=== PATIENT | female | born 1970 | race Caucasian/White ===

== ENCOUNTER 2016-11-25 14:44 | Emergency (ER) | payer OTHER ==
[~2016-11-25] VITALS: Ht 170.2 cm; Wt 70.8 kg
[~2016-11-25 14:44] MED LIST: CYCL10TA7 PO; DICL-201 PO; KFLHP PO; NYSS/ PO; PRLSR20 PO; SALI0.6593 NAE; ULT50 PO; ZFRODT4HP PO
[2016-11-25 15:03] VITALS: TEMP 36.7; Ht 170.2 cm; Wt 70.8 kg
[2016-11-25 16:53] VITALS: O2SAT 100
[2016-11-25] MEDS ORDERED: ALUMINUM/MAGNESIUM SUSP 30 ML UDC PO STA (16:58)
[2016-11-25] MEDS ORDERED: ZNTT/150 PO (17:02)
--- NOTE | 2016-11-25 17:09 | EMERGENCY ROOM VISIT NOTE ---
History Report prepared by Sunitha: Jose Polo Under the Supervision of: Landon EarlO. First contact with patient: 16:45 Chief Complaint: ABNORMAL LABS Stated Complaint: ABNORMAL LAB History of Present Illness The patient is a 46 year old female who presents to the Emergency Room with complaints of intermittent epigastric abdominal pain starting a few months ago. Last year, the patient started having abdominal issues which led to a cholecystectomy. After the gallbladder was removed, her nausea, vomiting, and abdominal pain resolved. A few months ago, she started having diarrhea. She also started having acid reflux and related abdominal pain. She describes the pain to be a burning pain. She has worsening pain with sitting down. She currently denies any pain. She was referred to the Emergency Room after she had an abnormal EKG at [facility]. She currently denies chest pain, shortness of breath, nausea, vomiting, back pain, urinary symptoms, lower extremity swelling/pain, or any other complaints. Besides acid reflux, she does not have any medical problems. She denies any history of cardiac problems. Source of History: patient Onset: a few months ago Position: abdomen (epigastric) Symptom Intensity: No pain currently Quality: burning Timing: intermittent Modifying Factors (Worsening): other (Sitting down) Associated Symptoms: + diarrhea, No SOB, No back pain, No chest pain, No nausea, No urinary symptoms, No vomiting Review of Systems See HPI for pertinent positives & negatives. A total of 10 systems reviewed and were otherwise negative. Past Medical & Surgical Medical Problems: (1) Anxiety (2) Hypertension Family History Cancer Heart disease Social History Smoking Status: Never Smoker Alcohol Use: none Drug Use: none Marital Status: in relationship Housing Status: lives with significant other Occupation Status: unemployed Current/Historical Medications Scheduled Nystatin (Nystatin Suspension), 5 ML PO 5XD Ranitidine (Zantac), 150 MG PO BID Allergies Coded Allergies: Fluticasone (Unverified Adverse Reaction, Severe, BURNING, 08/27/16) Ciprofloxacin (Verified Adverse Reaction, Intermediate, nausea, 10/17/15) Sulfamethoxazole w/Trimethoprim (Verified Adverse Reaction, Intermediate, nausea, 10/17/15) Physical Exam Vital Signs Date Time Temp Pulse Resp B/P Pulse Ox O2 Delivery O2 Flow Rate FiO2 11/25/16 18:28 99 18 157/89 100 11/25/16 16:56 98 3/27/17 16:53 100 Room Air 11/25/16 16:51 100 18 170/100 99 Room Air 11/25/16 15:03 36.7 104 18 173/113 95 Room Air Physical Exam GENERAL: Patient is awake, alert, and in no acute distress. Patient is resting comfortably and showing no signs of anxiety EYES: The conjunctivae are clear. The pupils are round and reactive. EARS, NOSE, MOUTH AND THROAT: The nose is without any evidence of any deformity. Mucous membranes are moist tongue is midline NECK: The neck is nontender and supple. RESPIRATORY: Normal respiratory effort is noted there is no evidence of wheezing rhonchi or rales CARDIOVASCULAR: Regular rate and rhythm noted there no murmurs rubs or gallops normal S1 normal S2 GASTROINTESTINAL: The abdomen is soft. Bowel sounds are present in all quadrants. Abdomen is nontender MUSCULOSKELETAL/EXTREMITIES: There is no evidence of gross deformity full range of motion is noted in the hips and shoulders SKIN: There is no obvious evidence of any rash. There are no petechiae, pallor or cyanosis noted. NEUROLOGIC: Patient is awake alert and oriented x3 strength is symmetric patellar reflexes are 2+ bilaterally Medical Decision & Procedures ER Provider Diagnostic Interpretation: X-ray results as stated below per interpretation by me and the radiologist. CHEST ONE VIEW PORTABLE CLINICAL HISTORY: ABDOMINAL PAIN/GI pain. Nausea. COMPARISON STUDY: No previous studies for comparison. FINDINGS: The bones soft tissues and hemidiaphragms are normal. The cardiomediastinal silhouette is normal. The lungs are clear. The pulmonary vasculature is normal. IMPRESSION: Negative chest. Electronically signed by: Sergio Parker M.D. 11/25/2016 5:20 PM Dictated Date/Time: 11/25/2016 5:20 PM Laboratory Results 11/25/16 16:50 Red Blood Count 4.65, Mean Corpuscular Volume 84.1, Mean Corpuscular Hemoglobin 29.0, Mean Corpuscular Hemoglobin Concent 34.5, Mean Platelet Volume 10.1, Neutrophils (%) (Auto) 65.9, Lymphocytes (%) (Auto) 26.1, Monocytes (%) (Auto) 7.0, Eosinophils (%) (Auto) 0.7, Basophils (%) (Auto) 0.2, Neutrophils # (Auto) 5.42, Lymphocytes # (Auto) 2.15, Monocytes # (Auto) 0.58, Eosinophils # (Auto) 0.06, Basophils # (Auto) 0.02 11/25/16 16:50 Test 11/25/16 16:50 White Blood Count 8.24 K/uL (4.8-10.8) Red Blood Count 4.65 M/uL (4.2-5.4) Hemoglobin 13.5 g/dL (12.0-16.0) Hematocrit 39.1 % (37-47) Mean Corpuscular Volume 84.1 fL (80-100) Mean Corpuscular Hemoglobin 29.0 pg (25-34) Mean Corpuscular Hemoglobin Concent 34.5 g/dl (32-36) Platelet Count 258 K/uL (130-400) Mean Platelet Volume 10.1 fL (7.4-10.4) Neutrophils (%) (Auto) 65.9 % Lymphocytes (%) (Auto) 26.1 % Monocytes (%) (Auto) 7.0 % Eosinophils (%) (Auto) 0.7 % Basophils (%) (Auto) 0.2 % Neutrophils # (Auto) 5.42 K/uL (1.4-6.5) Lymphocytes # (Auto) 2.15 K/uL (1.2-3.4) Monocytes # (Auto) 0.58 K/uL (0.11-0.59) Eosinophils # (Auto) 0.06 K/uL (0-0.5) Basophils # (Auto) 0.02 K/uL (0-0.2) RDW Standard Deviation 42.1 fL (36.4-46.3) RDW Coefficient of Variation 13.7 % (11.5-14.5) Immature Granulocyte % (Auto) 0.1 % Immature Granulocyte # (Auto) 0.01 K/uL (0.00-0.02) Prothrombin Time 11.4 SECONDS (9.0-12.0) Prothromb Time International Ratio 1.1 (0.9-1.1) Activated Partial Thromboplast Time 29.7 SECONDS (21.0-31.0) Partial Thromboplastin Ratio 1.1 Anion Gap 9.0 mmol/L (3-11) Est Creatinine Clear Calc Drug Dose 107.4 ml/min Estimated GFR () 125.1 Estimated GFR (Non- 108.0 BUN/Creatinine Ratio 12.4 (10-20) Calcium Level 8.9 mg/dl (8.5-10.1) Magnesium Level 2.5 mg/dl (1.8-2.4) Total Bilirubin 0.4 mg/dl (0.2-1) Direct Bilirubin < 0.1 mg/dl (0-0.2) Aspartate Amino Transf (AST/SGOT) 8 U/L (15-37) Alanine Aminotransferase (ALT/SGPT) 14 U/L (12-78) Alkaline Phosphatase 81 U/L (45-117) Total Creatine Kinase 69 U/L (26-192) Creatine Kinase MB < 0.5 ng/ml (0.5-3.6) Creatine Kinase MB Ratio (0-3.0) Troponin I < 0.015 ng/ml (0-0.045) Total Protein 7.6 gm/dl (6.4-8.2) Albumin 3.8 gm/dl (3.4-5.0) Lipase 171 U/L (73-393) Laboratory results per my review. Medications Administered Medications (Trade) Dose Ordered Sig/Malia Route Start Time Stop Time Status Last Admin Dose Admin Al Hydroxide/Mg Hydroxide (Maalox Susp) 30 ml NOW STAT PO 11/25/16 16:58 11/25/16 16:59 DC 11/25/16 17:08 30 ML ECG Indication: abdominal pain Rate (beats per minute): 91 Rhythm: normal sinus Findings: LBBB, no ectopy, other (No acute ST segment abnormalities) Comparison ECG Date: October 11, 2015 Change: Changes are new when compared to October 11, 2015. ED Course 1644: The patient was evaluated in room C11B. A complete history and physical examination were performed. 1657: Maalox Susp 30 ml PO 1758: I discussed the patient's case with Dr. Solano, floor person with [facility], who will follow her as an outpatient. 1820: Upon reevaluation, the patient is resting comfortably. I discussed the results and treatment plan with her. She verbalized agreement of the treatment plan. She was discharged home. Medical Decision Prior records/ancillary studies reviewed. Triage Nursing notes reviewed. The patient's history was concerning for abdominal pain. Differential diagnosis: Etiologies such as appendicitis, diverticulitis, PUD, biliary pathology, UTI, pancreatitis, obstruction, mesenteric ischemia, aortic pathology, infections, inflammatory bowel disease, renal colic, as well as others were entertained. The patient is a 46-year-old female who presented to the emergency department for an evaluation of an abnormal EKG. The patient was at the GI lab when she was found have a new left bundle branch block. The patient presented to the emergency department without any symptoms that I thought were consistent with acute coronary syndrome. She is had upper abdominal pain for approximately 1 year. She had her gallbladder out which initially relieved her pain but then started having epigastric discomfort. She was started on H2 blockers. She was sent to see a GI doctor and had an EGD today. The EKG was done and the patient was sent to the emergency department. She did not have any abnormalities in her cardiac biomarkers. I discussed the case with the on-call floor person. At this time he is agreed to see the patient in follow-up for further management including an echocardiogram and possible stress testing if need arises. Consults Time Called: 175 Consulting Physician: Dr. Solano, floor person with [facility] Returned Call: [phone] I discussed the patient's case with Dr. Solano, floor person with [facility], who will follow her as an outpatient. Impression Primary Impression: New onset left bundle branch block (LBBB) Scribe Attestation The scribe's documentation has been prepared under my direction and personally reviewed by me in its entirety. I confirm that the note above accurately reflects all work, treatment, procedures, and medical decision making performed by me. Departure Information Dispostion Home / Self-Care Referrals Efrain Huizar M.D. (PCP) Josef Arias M.D., Thomas O., DO Forms HOME CARE DOCUMENTATION FORM, IMPORTANT VISIT INFORMATION, WORK / SCHOOL INSTRUCTIONS Patient Instructions GERD, My [facility] Additional Instructions Call the floor person to schedule a follow-up appointment. Avoid any strenuous activity. Continue all medications as prescribed. Continue using Maalox or Mylanta as directed for symptomatically relief. Return to the emergency department immediately if symptoms change worsen or the need arises.
[2016-11-25 17:12] LABS: BASO % 0.2 %; BASO ABS # 0.02 K/uL (0-0.2); COMPLETE YES; EOS % 0.7 %; HEMATOCRIT 39.1 % (37-47); IG% 0.1 %; LYMPH % 26.1 %; LYMPH ABS # 2.15 K/uL (1.2-3.4); MEAN CELL VOLUME 84.1 fL (80-100); MEAN CORPUSCULAR HGB CONC 34.5 g/dl (32-36); MEAN PLATELET VOLUME 10.1 fL (7.4-10.4); NEUT % 65.9 %; PLATELET COUNT 258 K/uL (130-400); RED BLOOD COUNT 4.65 M/uL (4.2-5.4); WHITE BLOOD COUNT 8.24 K/uL (4.8-10.8)
[2016-11-25 17:19] LABS: INR 1.1 (0.9-1.1); PARTIAL THROMBOPLASTIN RATIO 1.1; PROTHROMBIN TIME (PATIENT) 11.4 SECONDS (9.0-12.0)
--- NOTE | 2016-11-25 17:21 | DIAGNOSTIC IMAGING REPORT ---
CHEST ONE VIEW PORTABLE CLINICAL HISTORY: ABDOMINAL PAIN/GI pain. Nausea. COMPARISON STUDY: No previous studies for comparison. FINDINGS: The bones soft tissues and hemidiaphragms are normal. The cardiomediastinal silhouette is normal. The lungs are clear. The pulmonary vasculature is normal. IMPRESSION: Negative chest. Electronically signed by: Sergio Parker M.D. 11/25/2016 5:20 PM Dictated Date/Time: 11/25/2016 5:20 PM
[2016-11-25 17:31] LABS: ALT/SGPT 14 U/L (12-78); AST/SGOT 8 U/L (15-37); BLOOD UREA NITROGEN 8 mg/dl (7-18); BUN/CREATININE RATIO 12.4 (10-20); CALCIUM 8.9 mg/dl (8.5-10.1); CARBON DIOXIDE 27 mmol/L (21-32); CHLORIDE 107 mmol/L (98-107); CREATININE 0.65 mg/dl (0.60-1.20); GLUCOSE 77 mg/dl (70-99); MAGNESIUM 2.5 mg/dl (1.8-2.4); POTASSIUM 3.3 mmol/L (3.5-5.1); SODIUM 143 mmol/L (136-145)
[2016-11-25 17:34] LABS: ALKALINE PHOSPHATASE 81 U/L (45-117)
[2016-11-25 18:28] VITALS: BP 157/89; PULSE 99; O2SAT 100
== END 2016-11-25 18:28 | disposition home or self-care (01) ==
LOC: C.EDB 14:45 → C.EDC 18:28
DX: I44.7 Left bundle-branch block, unspecified (principal); F41.9 Anxiety disorder, unspecified; I10 Essential (primary) hypertension; Z79.899 Other long term (current) drug therapy; Z88.2 Allergy status to sulfonamides; Z88.8 Allergy status to other drugs, medicaments and biological substances; Z80.9 Family history of malignant neoplasm, unspecified; Z82.49 Family history of ischemic heart disease and other diseases of the circulatory system

== ENCOUNTER → 2017-02-19 | Outpatient (CLI) | payer OTHER ==
[~2017-02-19] MED LIST changes: -CYCL10TA7 PO; -DICL-201 PO; -KFLHP PO; -PRLSR20 PO; -SALI0.6593 NAE; -ULT50 PO; -ZFRODT4HP PO; +ZNTT/150 PO
[2017-02-19 14:16] LABS: THYROID STIMULATING HORMONE 0.493 uIu/ml (0.300-4.500)
[2017-02-23 20:22] LABS: TSI <89 % baseline (<140)
== END | disposition home or self-care (01) ==
LOC: C.LAB1850 11:29
PROVIDERS: ATTEND Internal Medicine Endocrinology, Diabetes & Metabolism
DX: E05.10 Thyrotoxicosis with toxic single thyroid nodule without thyrotoxic crisis or storm (principal)